=== PATIENT | female | born 2000 | race African-American/Black ===

== ENCOUNTER 2021-03-15 01:50 | Inpatient (IN) | payer OTHER ==
[2021-03-15] MEDS: OXYTOCIN 20 UNITS in 0.9% NS 20 UNIT/1,000 ML INFUS.BAG IV SCH (02:35)
[2021-03-15] MEDS ORDERED: LIDOCAINE HCL 1% PRESERVATIVE FREE - 30ML VIAL ONE (02:35)
[2021-03-15] MEDS ORDERED: OXYTOCIN 20 UNITS in 0.9% NS 20 UNIT/1,000 ML INFUS.BAG IV ONE (02:38)
[2021-03-15] MEDS ORDERED: ACETAMINOPHEN 325 MG TABLET (FP) PO PRN (02:54)
[2021-03-15] MEDS ORDERED: BISACODYL 10 MG SUPP.RECT RC PRN (02:54)
[2021-03-15] MEDS ORDERED: BENZOCAINE 20% 57 GM BOTTLE TP PRN (02:54)
[2021-03-15] MEDS ORDERED: BENZOCAINE 28 GM HEMORRHOIDAL OINTMENT TP PRN (02:54)
[2021-03-15] MEDS ORDERED: WITCH HAZEL 50% (TUCKS) 40 PAD/JAR PAD TP PRN (02:54)
[2021-03-15] MEDS ORDERED: METHYLERGONOVINE MALEATE 0.2 MG/1 ML AMP IM PRN (02:54)
[2021-03-15] MEDS ORDERED: ELECTROLYTE-148 SOLN 1,000 ML IV SCH (03:00)
[2021-03-15 03:48] VITALS: BMI 27.4
[2021-03-15 03:52] LABS: BASO % 0.2 % (0-2.0); EOS % 0.2 % (0-4.5); HEMATOCRIT 28.7 % (32.4-45.2); HEMOGLOBIN 9.3 GM/dL (10.7-15.3); LYMPH % 11.4 % (8-40); MCHC 32.4 g/dl (32.0-36.0); MEAN PLT VOLUME 9.2 fl (7.5-11.1); MONO % 7.2 % (3.8-10.2); PLATELET COUNT 136 10^3/uL (134-434); RBC 4.22 M/mm3 (3.60-5.2); RDW 23.1 % (11.6-15.6); WHITE BLOOD COUNT 9.8 K/mm3 (4.0-10.0)
[2021-03-15 04:00] LABS: CALCIUM 8.9 mg/dL (8.5-10.1)
[2021-03-15 04:01] LABS: BLOOD UREA NITROGEN 4.7 mg/dL (7-18)
[2021-03-15 04:04] LABS: CREATININE 0.5 mg/dL (0.55-1.3)
[2021-03-15 04:13] LABS: INR 0.96 (0.83-1.09); PROTHROMBIN TIME (PATIENT) 10.8 SEC (9.7-13.0)
[2021-03-15 04:16] LABS: ACTIVATED PTT 31.6 SECONDS (25.2-36.5)
[2021-03-15 04:59] LABS: HIV INTERPRETATION NEGATIVE (NEGATIVE)
[2021-03-15 05:00] LABS: METHADONE, UR NEGATIVE (NEGATIVE); URINE BARBITURATES NEGATIVE (NEGATIVE); URINE BENZODIAZEPINES NEGATIVE (NEGATIVE)
[2021-03-15 05:01] LABS: PHENCYCLIDINE,URINE NEGATIVE (NEGATIVE)
[2021-03-15 05:05] LABS: ANISOCYTOSIS 2+; MACROCYTOSIS 0; OVALOCYTE 1+; PLATELET ESTIMATE DECREASED; TARGET CELLS 1+
[2021-03-15 05:07] LABS: COCAINE, UR NEGATIVE (NEGATIVE); OPIATES, URI NEGATIVE (NEGATIVE); URINE AMPHETAMINES NEGATIVE (NEGATIVE)
[2021-03-15] MEDS: IBUPROFEN 600 MG TABLET (FP) PO PRN ×2 (05:57→11:28)
[2021-03-15] MEDS: PRENATAL VITAMINS W/ FOLIC ACID TABLET (FP) PO SCH (09:52)
[2021-03-15] MEDS: FERROUS SO4 325 MG TABLET (FP) PO SCH ×3 (09:52→18:45)
[2021-03-16] MEDS: FERROUS SO4 325 MG TABLET (FP) PO SCH ×3 (09:00→17:49)
[2021-03-16] MEDS: IBUPROFEN 600 MG TABLET (FP) PO PRN ×2 (09:18→15:51)
[2021-03-16] MEDS: PRENATAL VITAMINS W/ FOLIC ACID TABLET (FP) PO SCH (09:43)
[2021-03-16 12:32] LABS: BASO % 0.4 % (0-2.0); EOS % 0.5 % (0-4.5); HEMATOCRIT 27.2 % (32.4-45.2); LYMPH % 19.7 % (8-40); MCH 22.9 pg (25.7-33.7); MCHC 33.1 g/dl (32.0-36.0); MEAN CELL VOLUME 69.2 fl (80-96); MEAN PLT VOLUME 8.6 fl (7.5-11.1); MONO % 8.1 % (3.8-10.2); NEUT % 71.3 % (42.8-82.8); PLATELET COUNT 159 10^3/uL (134-434); RBC 3.93 M/mm3 (3.60-5.2); RDW 23.2 % (11.6-15.6); WHITE BLOOD COUNT 10.3 K/mm3 (4.0-10.0)
[2021-03-16] MEDS: OXYTOCIN 20 UNITS in 0.9% NS 20 UNIT/1,000 ML INFUS.BAG IV SCH (17:40)
[2021-03-16] MEDS ORDERED: SENNOSIDES/DOCUSATE COMBO (SENNA PLUS) TABLET (UD) PO PRN (22:00)
[2021-03-17] MEDS: IBUPROFEN 600 MG TABLET (FP) PO PRN (08:40)
[2021-03-17] MEDS: FERROUS SO4 325 MG TABLET (FP) PO SCH ×2 (08:40→12:38)
[2021-03-17] MEDS: PRENATAL VITAMINS W/ FOLIC ACID TABLET (FP) PO SCH (09:12)
[2021-03-17 10:14] VITALS: BP 117/75; PULSE 73; TEMP 97.9
== END 2021-03-17 12:35 | disposition home or self-care (01) | DRG 560 ==
LOC: JLDR 01:50 → J3W 04:20
PROVIDERS: ADMIT Obstetrics & Gynecology; ATTEND Obstetrics & Gynecology
PROC: 10E0XZZ Delivery of Products of Conception, External Approach (ICD-10-PCS; principal; 2021-03-15)
PROC: 0HQ9XZZ Repair Perineum Skin, External Approach (ICD-10-PCS; 2021-03-15)
DX: O62.3 Precipitate labor (principal); O70.0 First degree perineal laceration during delivery; Z3A.39 39 weeks gestation of pregnancy; Z37.0 Single live birth; Z86.2 Personal history of diseases of the blood and blood-forming organs and certain disorders involving the immune mechanism; Z86.19 Personal history of other infectious and parasitic diseases
CPT/HCPCS: 36415; 59409; 80048; 80307; 85025; 85610; 85730; 86762; 86780; 86850; 86900; 86901; 87389; C9803; U0003; U0005